=== PATIENT | male | born 1980 | race Two or more races ===

== ENCOUNTER → 2017-09-03 | Outpatient (REF) | payer OTHER | LOC: M SMT 13:54 | DX: Z30.2 Encounter for sterilization (principal) | CPT/HCPCS: 88302 ==

== ENCOUNTER → 2017-10-10 | Outpatient (REF) | payer OTHER ==
[2017-10-10 14:51] LABS: SEMEN APPEARANCE OPAQUE (OPAQUE); SEMEN VOLUME 2.5 ml (4.0-5.0)
[2017-10-10 14:52] LABS: IMMMOTILE SPERM CENTRIFUGED PRESENT (ABSENT); IMMOTILE SPERM PRESENT (ABSENT); MOTILE SPERM ABSENT (ABSENT); MOTILE SPERM CENTRIFUGED ABSENT (ABSENT); SEMEN VISCOSITY LIQUID (LIQUID); SEMEN pH 8.5 (7.0-8.0); WBC CONCENTRATION <=1 M/ml (<=1 M/ml)
== END ==
LOC: M SMT 12:14
DX: Z98.52 Vasectomy status (principal)
CPT/HCPCS: 89321